=== PATIENT | female | born 1980 | race Caucasian/White ===

== ENCOUNTER 2017-10-08 00:46 | Emergency (ER) | payer SELFPAY ==
[~2017-10-08] VITALS: Ht 175.3 cm; Wt 64.0 kg
[2017-10-08 00:54] VITALS: Ht 175.3 cm; Wt 64.0 kg
[2017-10-08 02:50] VITALS: BP 125/86
== END 2017-10-08 02:50 | disposition home or self-care (01) ==
LOC: ED 00:46
DX: S93.401A Sprain of unspecified ligament of right ankle, initial encounter (principal); X58.XXXA Exposure to other specified factors, initial encounter; Y93.89 Activity, other specified; Y92.89 Other specified places as the place of occurrence of the external cause; Y99.8 Other external cause status; R60.0 Localized edema
CPT/HCPCS: Q0092